=== PATIENT | male | born 1945 | race Caucasian/White ===

== ENCOUNTER 2022-03-18 07:48 | Outpatient (CLI) | payer MEDICARE ==
[2022-03-18 09:14] LABS: Hemoglobin 17.1 g/dL (13.5-17.5); Mean Corpuscular Hemoglobin 27.9 pg (27.0-33.0); Mean Corpuscular Volume 87.4 fl (81.2-95.1); Mean Platelet Volume 10.4 fl (7.4-10.4); Platelet Count 178 10x3/uL (150-450); RBC Distribution Width 16.9 % (11.5-14.5); Red Blood Cell (RBC) Count 6.12 10x6/uL (4.32-5.72); White Blood Cell (WBC) Count 7.1 10x3/uL (3.5-10.5)
[2022-03-18 09:25] LABS: INR-International Normal Ratio 1.4; Prothrombin Time 15.1 sec (9.5-12.1)
[2022-03-18 09:29] LABS: Anion Gap 11 mmol/L (10-20); BUN (Urea Nitrogen) 16 mg/dL (8.4-25.7); Calc. Creatinine Clearance 0 mL/min (70-130); Carbon Dioxide 29 mmol/L (23-31); Chloride 105 mmol/L (98-107); Glucose 119 mg/dL (83-110); Potassium 5.3 mmol/L (3.5-5.1); Sodium 140 mmol/L (136-145)
[2022-03-18 23:13] LABS: SARS-CoV-2 PCR by NAA Not Detected (NotDetected)
== END 2022-03-18 07:49 | disposition home or self-care (01) ==
LOC: LABBT 07:48
PROVIDERS: ATTEND Internal Medicine Cardiovascular Disease
DX: Z01.812 Encounter for preprocedural laboratory examination (principal); I48.3 Typical atrial flutter; Z20.822 Contact with and (suspected) exposure to COVID-19
CPT/HCPCS: 80048; 85027; 85610; U0003; U0005

== ENCOUNTER 2022-03-23 06:02 | Day surgery (SDC) | payer MEDICARE ==
[2022-03-19 10:44] VITALS: BMI 39.7
[2022-03-23] MEDS ORDERED: Isoproterenol 0.2 MG/1 ML AMP ONE (08:23)
[2022-03-23] MEDS ORDERED: Heparin 10,000 UNITS/ 10 ML VIAL ONE (08:23)
[2022-03-23] MEDS ORDERED: Lidocaine 1% (PF) 30 ML VIAL ONE (08:23)
[2022-03-23] MEDS ORDERED: Heparin 25,000 units/D5W 0 ML ONE (08:23)
[2022-03-23] MEDS ORDERED: Propofol 500 MG/50 ML VIAL ONE (10:10)
[2022-03-23] MEDS ORDERED: Meperidine HCl/PF 25 MG/ML VIAL ONE (10:10)
[2022-03-23] MEDS ORDERED: ePHEDrine 50 MG/ML VIAL ONE (10:16)
[2022-03-23] MEDS ORDERED: Lidocaine 1% PF 5 ML VIAL ONE (10:16)
[2022-03-23] MEDS ORDERED: PROPOFOL 200 MG/20 ML VIAL ONE (10:16)
[2022-03-23] MEDS ORDERED: Naloxone HCl 0.4 mg/ml Vial ONE (10:16)
[2022-03-23] MEDS ORDERED: Fentanyl 100 MCG/2 ML VIAL ONE (11:11)
== END 2022-03-23 15:36 | disposition home or self-care (01) ==
LOC: SDC 06:02
PROVIDERS: ATTEND Internal Medicine Cardiovascular Disease
PROC: B246ZZ4 Ultrasonography of Right and Left Heart, Transesophageal (ICD-10-PCS; principal; 2022-03-23)
PROC: 02583ZZ Destruction of Conduction Mechanism, Percutaneous Approach (ICD-10-PCS; 2022-03-23)
PROC: 02K83ZZ Map Conduction Mechanism, Percutaneous Approach (ICD-10-PCS; 2022-03-23)
DX: I48.3 Typical atrial flutter (principal); I35.1 Nonrheumatic aortic (valve) insufficiency; I44.0 Atrioventricular block, first degree; I45.10 Unspecified right bundle-branch block; I48.0 Paroxysmal atrial fibrillation; I13.0 Hypertensive heart and chronic kidney disease with heart failure and stage 1 through stage 4 chronic kidney disease, or unspecified chronic kidney disease; N18.9 Chronic kidney disease, unspecified; I50.22 Chronic systolic (congestive) heart failure; I25.5 Ischemic cardiomyopathy; E78.2 Mixed hyperlipidemia; E78.00 Pure hypercholesterolemia, unspecified; M17.12 Unilateral primary osteoarthritis, left knee; I25.118 Atherosclerotic heart disease of native coronary artery with other forms of angina pectoris; G47.33 Obstructive sleep apnea (adult) (pediatric); Z79.01 Long term (current) use of anticoagulants; Z79.899 Other long term (current) drug therapy; Z95.1 Presence of aortocoronary bypass graft; Z96.651 Presence of right artificial knee joint
CPT/HCPCS: 93005; 93312; 93613; 93653; C1731; C1894; C2630; J1644; J2001; J2175; J2310; J2704; J3010; J3490

== ENCOUNTER 2023-10-25 07:54 | Day surgery (SDC) | payer MEDICARE ==
[2023-10-24 11:37] VITALS: BMI 39.1
[2023-10-25 09:06] LABS: #Eosinphils 0.1 thou/uL (0.0-0.7); #Monocytes 0.7 thou/uL (0.11-0.59); #Neutrophils 5.2 thou/uL (1.40-6.50); %Basophils 0.6 % (0.0-1.0); %Lymphocytes 15.6 % (21.0-51.0); %Monocytes 9.3 % (0.0-10.0); %Neutrophils 72.2 % (42.0-75.0); Hematocrit 52.2 % (42.0-52.0); Hemoglobin 16.1 g/dL (14.0-18.0); Mean Corpuscular HGB CONC 30.8 g/dL (32.0-36.0); Mean Corpuscular Hemoglobin 27.1 pg (27.0-31.0); Mean Corpuscular Volume 87.7 fl (78.0-98.0); Platelet Count 189 10x3/uL (130-400); RBC Distribution Width 15.4 % (11.5-14.5); Red Blood Cell (RBC) Count 5.95 mill/uL (4.70-6.10); White Blood Cell (WBC) Count 7.1 10x3/uL (4.8-10.8)
[2023-10-25 09:34] LABS: ALT (SGPT) 11 U/L (8-55); AST (SGOT) 16 U/L (5-34); Albumin 3.7 g/dL (3.4-4.8); Alkaline Phosphatase 113 U/L (40-110); Anion Gap 14 mmol/L (10-20); BUN (Urea Nitrogen) 13 mg/dL (8.4-25.7); Bilirubin, Direct 0.4 mg/dL (0.1-0.3); Bilirubin, Total 1.1 mg/dL (0.2-1.2); Calc. Creatinine Clearance 78 mL/min (70-130); Calcium 9.2 mg/dL (7.8-10.44); Carbon Dioxide 26 mmol/L (23-31); Chloride 106 mmol/L (98-107); Estimated GFR 60; Glucose 109 mg/dL (83-110); Potassium 4.6 mmol/L (3.5-5.1); Protein, Total 7.3 g/dL (5.8-8.1); Sodium 141 mmol/L (136-145)
[2023-10-25] MEDS ORDERED: Indocyanine Green 25 MG/10 ML VIAL ONE (11:32)
[2023-10-25] MEDS ORDERED: Bupivacaine 0.25% HCL 30 ML VIAL ONE (11:32)
[2023-10-25] MEDS ORDERED: EPINEPHrine 1 MG/ML VIAL ONE (11:32)
[2023-10-25] MEDS ORDERED: Lidocaine 1% PF 5 ML VIAL ONE ×2 (11:45→12:40)
[2023-10-25] MEDS ORDERED: Rocuronium Bromide 10 MG/ML (10ML VIAL) ONE ×2 (11:45→12:40)
[2023-10-25] MEDS ORDERED: PROPOFOL 20 ML ONE (11:46)
[2023-10-25] MEDS ORDERED: fentaNYL PF 100 MCG/2 ML SYRINGE ONE (12:26)
[2023-10-25] MEDS ORDERED: Sodium Chloride 0.9% 100 ML ONE (12:27)
[2023-10-25] MEDS ORDERED: CEFAZOLIN 2 GM VIAL ONE (12:27)
[2023-10-25] MEDS ORDERED: PROPOFOL 200 MG/20 ML VIAL ONE (12:40)
[2023-10-25] MEDS ORDERED: Ondansetron PF 4 MG/2 ML Vial ONE (12:40)
[2023-10-25] MEDS ORDERED: Glycopyrrolate 0.2 MG/ML 5 ML SYRINGE ONE (12:40)
[2023-10-25] MEDS ORDERED: NEOSTIGMINE 3 MG/3 ML SYR 3 MG/3 ML SYRINGE ONE (12:40)
[2023-10-25] MEDS ORDERED: PHENYLEPHRINE-NS 100 MCG/ML 10 ML SYRINGE ONE (12:40)
[2023-10-25] MEDS ORDERED: Dexamethasone 20 MG/5 ML VIAL ONE (12:40)
[2023-10-25] MEDS ORDERED: fentaNYL 50 mcg/mL 1 mL Vial ONE ×3 (13:48→14:34)
[2023-10-25] MEDS ORDERED: HYDROcodone/Acetaminophen 5/325 mg Tablet ONE (15:58)
== END 2023-10-25 16:36 | disposition home or self-care (01) ==
LOC: SDC 07:54
PROVIDERS: ATTEND Surgery
PROC: 0FT44ZZ Resection of Gallbladder, Percutaneous Endoscopic Approach (ICD-10-PCS; principal; 2023-10-25)
DX: K80.10 Calculus of gallbladder with chronic cholecystitis without obstruction (principal)
CPT/HCPCS: 47562; 80048; 80076; 85025; J0171; J3010; 36415; 88304; J1100; J2405; J2704; J3490; S0020

== ENCOUNTER 2024-05-27 09:09 | Emergency (ER) | payer MEDICARE ==
[2024-05-27] MEDS ORDERED: Acetaminophen 500 MG TAB ONE (09:35)
[2024-05-27] MEDS ORDERED: Bacitracin 1 PK ONE (09:44)
== END 2024-05-27 10:23 | disposition home or self-care (01) ==
LOC: ERS 09:09
DX: S40.811A Abrasion of right upper arm, initial encounter (principal); M25.562 Pain in left knee; W19.XXXA Unspecified fall, initial encounter

== ENCOUNTER 2024-11-24 05:05 | Inpatient (IN) | payer MEDICARE ==
[2024-11-24] MEDS ORDERED: NOREPINEPHRINE 8 MG/250 ML-D5W 250 ML ONE (05:12)
[2024-11-24] MEDS ORDERED: cefTRIAXone (ROCEPHIN) 2 GM VIAL ONE (05:40)
[2024-11-24] MEDS ORDERED: Sodium Chloride 0.9% 100 ML ONE (05:40)
[2024-11-24 05:45] LABS: #Basophils 0.03 10x3/uL (0.0-0.2); %Basophils 0.3 % (0.0-1.0); %Eosinophils 0.9 % (0.0-10.0); %Lymphocytes 10.6 % (21.0-51.0); %Monocytes 8.4 % (0.0-10.0); %Neutrophils 79.4 % (42.0-75.0); Hematocrit 41.2 % (42.0-52.0); Hemoglobin 12.8 g/dL (14.0-18.0); Mean Corpuscular HGB CONC 31.1 g/dL (32.0-36.0); Mean Corpuscular Hemoglobin 24.8 pg (27.0-31.0); Mean Corpuscular Volume 79.7 fL (78.0-98.0); Mean Platelet Volume 9.9 fL (7.4-10.4); Platelet Count 178 10x3/uL (130-400); RBC Distribution Width 16.7 % (11.5-14.5); Red Blood Cell (RBC) Count 5.17 mill/uL (4.70-6.10)
[2024-11-24 05:50] LABS: ALT (SGPT) 6 U/L (8-55); AST (SGOT) 10 U/L (5-34); Albumin 2.9 g/dL (3.4-4.8); Alkaline Phosphatase 89 U/L (40-110); Anion Gap 13 mmol/L (10-20); BUN (Urea Nitrogen) 16 mg/dL (8.4-25.7); Bilirubin, Total 0.6 mg/dL (0.2-1.2); Calc. Creatinine Clearance 0 mL/min (70-130); Calcium 7.6 mg/dL (7.8-10.44); Carbon Dioxide 18 mmol/L (23-31); Chloride 110 mmol/L (98-107); Estimated GFR 57; Globulin 2.8 g/dL (2.4-3.5); Glucose 95 mg/dL (83-110); Potassium 3.3 mmol/L (3.5-5.1); Protein, Total 5.7 g/dL (5.8-8.1); Sodium 138 mmol/L (136-145)
[2024-11-24 05:55] LABS: Troponin I 0.064 ng/mL (< 0.028)
[2024-11-24] MEDS ORDERED: Azithromycin 500 MG VIAL ONE (06:04)
[2024-11-24 08:20] LABS: Lactic Acid 2.62 mmol/L (0.5-2.2)
[2024-11-24] MEDS ORDERED: Ondansetron PF 4 MG/2 ML Vial IVP PRN (09:30)
[2024-11-24] MEDS ORDERED: Albuterol 200 PUFF (6.7GM INHALER) INH PRN (09:30)
[2024-11-24] MEDS ORDERED: Ondansetron ODT 4 MG TAB PO PRN (09:30)
[2024-11-24] MEDS ORDERED: Benzonatate 100 MG CAP PO PRN (09:30)
[2024-11-24] MEDS ORDERED: Acetaminophen 500 MG TAB PO PRN (09:30)
[2024-11-24 10:05] VITALS: BMI 40.4
[2024-11-24] MEDS: Potassium Chloride 20 MEQ TAB PO SCH ×2 (10:31→16:06)
[2024-11-24] MEDS: Sodium Chloride 0.9% 1,000 ML IV SCH (10:31)
[2024-11-24] MEDS: NOREPINEPHRINE 8 MG/250 ML-D5W 250 ML IVPB SCH (10:34)
[2024-11-24] MEDS: Vancomycin (BATCH) 2.5 GM in Premix 1 BAG IVPB SCH (10:34)
[2024-11-24 13:14] LABS: Lactic Acid 2.22 mmol/L (0.5-2.2)
[2024-11-24] MEDS: Rivaroxaban 10 MG TAB PO SCH (16:06)
[2024-11-24] MEDS: Sotalol HCl 80 MG TAB PO SCH (20:06)
[2024-11-24] MEDS: Famotidine 20 MG TAB PO SCH (20:06)
[2024-11-24] MEDS: Cefepime 2 GM in Sodium Chloride 0.9% 100 ML IVPB SCH (20:11)
[2024-11-24 20:13] VITALS: BP 111/67
[2024-11-24] MEDS ORDERED: Vancomycin 1 GM in Sodium Chloride 0.9% 250 ML 300 ML IVPB SCH (21:00)
[2024-11-24] MEDS ORDERED: Vancomycin (BATCH) 1.25 GM in Premix 1 BAG IVPB SCH (23:00)
[2024-11-24] MEDS: VANCOMYCIN 1.25 GM/250 ML BAG 1.25 GM in Premix 1 BAG IVPB SCH (23:26)
[2024-11-25 05:25] LABS: #Basophils 0.04 10x3/uL (0.0-0.2); %Basophils 0.6 % (0.0-1.0); %Eosinophils 2.2 % (0.0-10.0); %Lymphocytes 16.5 % (21.0-51.0); %Monocytes 10.4 % (0.0-10.0); %Neutrophils 69.9 % (42.0-75.0); Hematocrit 38.5 % (42.0-52.0); Mean Corpuscular HGB CONC 31.2 g/dL (32.0-36.0); Mean Corpuscular Hemoglobin 24.7 pg (27.0-31.0); Mean Corpuscular Volume 79.2 fL (78.0-98.0); Platelet Count 190 10x3/uL (130-400); Red Blood Cell (RBC) Count 4.86 mill/uL (4.70-6.10)
[2024-11-25 05:37] LABS: Vancomycin, Random 25.2 ug/mL (See Comment)
[2024-11-25 05:39] LABS: ALT (SGPT) 7 U/L (8-55); AST (SGOT) 17 U/L (5-34); Albumin 2.7 g/dL (3.4-4.8); Alkaline Phosphatase 80 U/L (40-110); Anion Gap 10 mmol/L (10-20); BUN (Urea Nitrogen) 16 mg/dL (8.4-25.7); Bilirubin, Total 0.5 mg/dL (0.2-1.2); Calc. Creatinine Clearance 83 mL/min (70-130); Calcium 7.5 mg/dL (7.8-10.44); Carbon Dioxide 19 mmol/L (23-31); Chloride 113 mmol/L (98-107); Estimated GFR 63; Globulin 2.8 g/dL (2.4-3.5); Glucose 95 mg/dL (83-110); Magnesium 1.9 mg/dL (1.6-2.6); Potassium 4.3 mmol/L (3.5-5.1); Protein, Total 5.5 g/dL (5.8-8.1); Sodium 138 mmol/L (136-145)
[2024-11-25 07:04] VITALS: TEMP 98.2
[2024-11-25] MEDS: Tamsulosin HCl 0.4 MG CAP PO SCH (07:23)
[2024-11-25] MEDS: Zinc Sulfate 220 MG CAP PO SCH (07:23)
[2024-11-25] MEDS: Cholecalciferol (Vitamin D3) 400 UNITS TAB PO SCH (07:23)
[2024-11-25] MEDS: Dexamethasone 10 MG/ML VIAL SLOW IVP SCH (07:24)
[2024-11-25] MEDS: Ascorbic Acid 500 mg Chewable Tablet PO SCH (07:24)
== END 2024-11-25 09:45 | disposition home or self-care (01) | DRG 177 ==
LOC: ERS 05:05 → CCU 07:53
PROVIDERS: ADMIT Family Medicine; ATTEND Internal Medicine
DX: U07.1 COVID-19 (principal); I21.A1 Myocardial infarction type 2; R57.1 Hypovolemic shock; I13.0 Hypertensive heart and chronic kidney disease with heart failure and stage 1 through stage 4 chronic kidney disease, or unspecified chronic kidney disease; I48.91 Unspecified atrial fibrillation; I95.9 Hypotension, unspecified; Z79.899 Other long term (current) drug therapy; Z79.82 Long term (current) use of aspirin; I50.9 Heart failure, unspecified; Z90.49 Acquired absence of other specified parts of digestive tract; Z98.890 Other specified postprocedural states; I25.10 Atherosclerotic heart disease of native coronary artery without angina pectoris; M19.90 Unspecified osteoarthritis, unspecified site; E78.5 Hyperlipidemia, unspecified; E66.01 Morbid (severe) obesity due to excess calories; N18.9 Chronic kidney disease, unspecified; E87.6 Hypokalemia; E86.0 Dehydration
CPT/HCPCS: 36415; 71045; 80053; 80202; 83605; 83735; 83880; 84145; 84443; 84484; 85025; 86141; 87040; 87428; 93005; 94760; 96365; 96366; 96367; J0456; J0692; J0696; J1100; J3370; J7030